=== PATIENT | female | born 1950 | race African-American/Black ===

== ENCOUNTER 2020-06-28 14:45 | Emergency (ER) | payer MEDICARE ==
[2020-06-28] MEDS ORDERED: Ketorolac Tromethamine 30 MG/ML VIAL ONE (15:41)
--- NOTE | 2020-06-28 15:56 | RAD ---
EXAM: 4 views of the left knee HISTORY: Severe left knee pain COMPARISON: None FINDINGS: A large knee effusion is seen. There is no evidence of acute fracture or dislocation. Moder ate tricompartmental degenerative changes are seen. Irregularity along the posterior aspect of the patella could represent degenerative change but osseous erosions are also a possibility. Mild diffuse soft tissue swelling is present. IMPRESSION: 1. Large knee effusion 2. Moderate left knee osteoarthritis with questionable osseous erosions along the posterior aspect of the patella
== END 2020-06-28 17:20 | disposition home or self-care (01) ==
LOC: ERS 14:45
DX: M25.462 Effusion, left knee (principal); I10 Essential (primary) hypertension; D64.9 Anemia, unspecified; M06.9 Rheumatoid arthritis, unspecified; M10.9 Gout, unspecified; F17.220 Nicotine dependence, chewing tobacco, uncomplicated; Z79.899 Other long term (current) drug therapy
CPT/HCPCS: 96372; J1885

== ENCOUNTER 2020-07-22 22:00 | Inpatient (IN) | payer MEDICARE ==
[2020-07-22] MEDS ORDERED: Diltiazem 125 MG/25 ML ONE ×2 (22:54→22:57)
[2020-07-22 23:22] LABS: Hemoglobin 9.7 g/dL (12.0-16.0); Mean Corpuscular HGB CONC 32.5 g/dL (32.0-36.0); Mean Corpuscular Hemoglobin 25.8 pg (27.0-31.0); Mean Corpuscular Volume 79.4 fL (78.0-98.0); Mean Platelet Volume 10.3 fL (7.4-10.4); Platelet Count 137 thou/uL (130-400); Red Blood Cell (RBC) Count 3.78 mill/uL (4.20-5.40); White Blood Cell (WBC) Count 10.3 thou/uL (4.8-10.8)
[2020-07-22 23:29] LABS: INR-International Normal Ratio 1.1; PTT 38.8 sec (22.9-36.1); Prothrombin Time 14.7 sec (12.0-14.7)
[2020-07-22 23:38] LABS: Band 2 % (5-11); Hypochromia SLIGHT = 6-15 cells (100X) (0-5/hpf); Lymphocytes 17 % (21-51); MDiff Complete? YES; Monocytes 11 % (0-10); Neutrophil 68 % (42-75); Reactive Lymphocytes 2 % (0-10)
[2020-07-22 23:44] LABS: ALT (SGPT) 17 U/L (8-55); AST (SGOT) 17 U/L (5-34); Albumin 3.4 g/dL (3.4-4.8); Alkaline Phosphatase 70 U/L (40-110); Anion Gap 15 mmol/L (10-20); BUN (Urea Nitrogen) 18 mg/dL (9.8-20.1); Bilirubin, Total 0.4 mg/dL (0.2-1.2); Calc. Creatinine Clearance 0 mL/min (70-130); Calcium 8.7 mg/dL (7.8-10.44); Carbon Dioxide 22 mmol/L (23-31); Chloride 101 mmol/L (98-107); Globulin 3.4 g/dL (2.4-3.5); Glucose 153 mg/dL (83-110); Potassium 3.3 mmol/L (3.5-5.1); Protein, Total 6.8 g/dL (5.8-8.1); Sodium 135 mmol/L (136-145)
[2020-07-23 00:06] LABS: CKMB 0.5 ng/mL (0-6.6)
[2020-07-23 00:07] LABS: Bacteria/HPF 3+ HPF (None Seen); Bilirubin Negative (Negative); Blood, Urine 1+ (Negative); Clarity Clear (Clear); Glucose, Urine (Dipstick) Normal (Negative); Ketone, Urine Negative (Negative); Leukocyte 500 Leu/uL (Negative); Nitrite Negative (Negative); Protein, Urine (Dipstick) Negative (Neg-Trace); Specific Gravity, Urine 1.006 (1.002-1.036); Squamous Epithelial 0-3 HPF (0-3); Urobilinogen Normal mg/dL (Less than 2); WBC/HPF Greater than 50 HPF (0-3)
[2020-07-23] MEDS ORDERED: Morphine 4 MG/ML VIAL ONE (00:51)
[2020-07-23] MEDS ORDERED: cefTRIAXone\\ROCEPHIN 1 GM VIAL ONE (00:52)
[2020-07-23] MEDS ORDERED: Ondansetron PF 4 MG/2 ML Vial ONE (00:53)
[2020-07-23] MEDS ORDERED: Ondansetron ODT 4 MG TAB ONE (01:03)
[2020-07-23] MEDS ORDERED: Apixaban 5 MG TAB PO SCH ×2 (02:00→21:00)
[2020-07-23 02:39] LABS: Troponin I 0.057 ng/mL (< 0.028)
[2020-07-23 05:03] VITALS: BMI 29.6
[2020-07-23] MEDS ORDERED: Ondansetron PF 4 MG/2 ML Vial IVP PRN (05:15)
[2020-07-23] MEDS ORDERED: Potassium Chloride 20 MEQ TAB PO SCH (05:30)
[2020-07-23] MEDS ORDERED: Magnesium Oxide 400 MG TAB PO SCH (05:30)
[2020-07-23 05:42] LABS: Troponin I 0.052 ng/mL (< 0.028)
[2020-07-23] MEDS: Acetaminophen 325 MG TAB PO PRN ×3 (06:43→16:34)
[2020-07-23] MEDS: Metoprolol Tartrate 25 MG TAB PO SCH ×2 (09:27→21:54)
[2020-07-23] MEDS ORDERED: Iopamidol-370 76% 500 ML 1 ML ONE (10:59)
[2020-07-23] MEDS ORDERED: Colchicine 0.6 MG TAB PO SCH (16:45)
[2020-07-23] MEDS ORDERED: Ketorolac Tromethamine 30 MG/ML VIAL IVP SCH (18:00)
[2020-07-23] MEDS: Ketorolac Tromethamine 30 MG/ML VIAL IVP SCH ×2 (19:01→23:44)
[2020-07-23] MEDS: Colchicine 0.6 MG TAB PO SCH (21:54)
[2020-07-23] MEDS: cefTRIAXone\\ROCEPHIN 1 GM in Sodium Chloride 0.9% 100 ML IVPB SCH (23:48)
[2020-07-24 03:54] LABS: Bacteria/HPF None Seen HPF (None Seen); Bilirubin Negative (Negative); Blood, Urine 2+ (Negative); Clarity Clear (Clear); Glucose, Urine (Dipstick) Normal (Negative); Ketone, Urine Negative (Negative); Leukocyte 500 Leu/uL (Negative); Nitrite Negative (Negative); Protein, Urine (Dipstick) Negative (Neg-Trace); Squamous Epithelial 0-3 HPF (0-3); Urobilinogen Normal mg/dL (Less than 2); pH, Urine 5.5 (5.0-9.0)
[2020-07-24 05:41] LABS: #Eosinphils 0.1 thou/uL (0.0-0.7); #Lymphocytes 1.2 thou/uL (1.20-3.40); #Monocytes 0.7 thou/uL (0.11-0.59); #Neutrophils 4.9 thou/uL (1.40-6.50); %Basophils 0.6 % (0.0-1.0); %Eosinophils 2.1 % (0.0-10.0); %Lymphocytes 17.4 % (21.0-51.0); %Monocytes 9.8 % (0.0-10.0); %Neutrophils 70.2 % (42.0-75.0); Hemoglobin 9.2 g/dL (12.0-16.0); Mean Corpuscular HGB CONC 31.8 g/dL (32.0-36.0); Mean Corpuscular Hemoglobin 25.8 pg (27.0-31.0); Mean Corpuscular Volume 81.1 fL (78.0-98.0); Mean Platelet Volume 10.1 fL (7.4-10.4); Platelet Count 154 thou/uL (130-400); Red Blood Cell (RBC) Count 3.56 mill/uL (4.20-5.40)
[2020-07-24 05:54] LABS: Anion Gap 16 mmol/L (10-20); BUN (Urea Nitrogen) 21 mg/dL (9.8-20.1); Calc. Creatinine Clearance 66 mL/min (70-130); Carbon Dioxide 23 mmol/L (23-31); Chloride 103 mmol/L (98-107); Glucose 74 mg/dL (83-110); Magnesium 1.7 mg/dL (1.6-2.6); Potassium 3.9 mmol/L (3.5-5.1); Sodium 138 mmol/L (136-145)
[2020-07-24] MEDS: Ketorolac Tromethamine 30 MG/ML VIAL IVP SCH ×3 (06:20→19:22)
[2020-07-24] MEDS: Lisinopril/Hydrochlorothiazide 20/25 mg Tablet PO SCH (08:54)
[2020-07-24] MEDS: Colchicine 0.6 MG TAB PO SCH ×2 (08:55→19:42)
[2020-07-24] MEDS: Metoprolol Tartrate 25 MG TAB PO SCH ×2 (08:55→19:42)
[2020-07-24] MEDS ORDERED: Famotidine 20 MG TAB PO SCH (13:30)
[2020-07-24] MEDS: Famotidine 20 MG TAB PO SCH (19:42)
[2020-07-25] MEDS: Ketorolac Tromethamine 30 MG/ML VIAL IVP SCH ×2 (00:07→05:45)
[2020-07-25] MEDS: cefTRIAXone\\ROCEPHIN 1 GM in Sodium Chloride 0.9% 100 ML IVPB SCH (00:09)
[2020-07-25 04:51] LABS: Hemoglobin 9.3 g/dL (12.0-16.0); Platelet Count 168 thou/uL (130-400)
[2020-07-25 08:02] VITALS: BP 127/71; TEMP 98.7
[2020-07-25] MEDS: Metoprolol Tartrate 25 MG TAB PO SCH (09:47)
[2020-07-25] MEDS: Lisinopril/Hydrochlorothiazide 20/25 mg Tablet PO SCH (09:47)
[2020-07-25] MEDS: Famotidine 20 MG TAB PO SCH (09:48)
[2020-07-25] MEDS: Colchicine 0.6 MG TAB PO SCH (09:48)
== END 2020-07-25 11:59 | disposition home or self-care (01) | DRG 689 ==
LOC: ERS 22:00 → 2SW 07-23 01:02
PROVIDERS: ADMIT Internal Medicine; ATTEND Family Medicine
DX: N10 Acute pyelonephritis (principal); I21.A1 Myocardial infarction type 2; I48.0 Paroxysmal atrial fibrillation; I10 Essential (primary) hypertension; M10.9 Gout, unspecified; D50.9 Iron deficiency anemia, unspecified; M19.90 Unspecified osteoarthritis, unspecified site; E87.6 Hypokalemia; Z98.890 Other specified postprocedural states; Z90.49 Acquired absence of other specified parts of digestive tract; Z98.51 Tubal ligation status; Z79.899 Other long term (current) drug therapy; Z83.3 Family history of diabetes mellitus
CPT/HCPCS: 36415; 71045; 71275; 80048; 80053; 81001; 81003; 81015; 82274; 82553; 83605; 83735; 84443; 84484; 84550; 85014; 85018; 85025; 85049; 85379; 85610; 85730; 87040; 87086; 93005; 93010; 93306; 96365; 96366; 96367; 96375; J0696; J1885; J2270; J2405; J3490; Q0162; Q9967

== ENCOUNTER 2020-08-19 15:24 | Inpatient (IN) | payer MEDICARE ==
[2020-08-19 16:15] LABS: #Eosinphils 0.1 thou/uL (0.0-0.7); #Lymphocytes 1.8 thou/uL (1.20-3.40); #Monocytes 0.4 thou/uL (0.11-0.59); %Basophils 0.6 % (0.0-1.0); %Eosinophils 1.6 % (0.0-10.0); %Lymphocytes 33.2 % (21.0-51.0); %Monocytes 8.4 % (0.0-10.0); %Neutrophils 56.3 % (42.0-75.0); Hemoglobin 11.4 g/dL (12.0-16.0); Mean Corpuscular HGB CONC 32.7 g/dL (32.0-36.0); Mean Corpuscular Hemoglobin 25.9 pg (27.0-31.0); Mean Corpuscular Volume 79.3 fL (78.0-98.0); Mean Platelet Volume 10.6 fL (7.4-10.4); Platelet Count 145 thou/uL (130-400); RBC Distribution Width 13.3 % (11.5-14.5); Red Blood Cell (RBC) Count 4.38 mill/uL (4.20-5.40); White Blood Cell (WBC) Count 5.3 thou/uL (4.8-10.8)
[2020-08-19 16:40] LABS: ALT (SGPT) 25 U/L (8-55); AST (SGOT) 19 U/L (5-34); Albumin 4.1 g/dL (3.4-4.8); Alkaline Phosphatase 93 U/L (40-110); Anion Gap 16 mmol/L (10-20); BUN (Urea Nitrogen) 16 mg/dL (9.8-20.1); Bilirubin, Total 0.3 mg/dL (0.2-1.2); CK (CPK) 74 U/L (29-168); Calc. Creatinine Clearance 0 mL/min (70-130); Calcium 9.6 mg/dL (7.8-10.44); Carbon Dioxide 25 mmol/L (23-31); Chloride 104 mmol/L (98-107); Glucose 109 mg/dL (83-110); Magnesium 1.4 mg/dL (1.6-2.6); Potassium 3.1 mmol/L (3.5-5.1); Protein, Total 7.1 g/dL (5.8-8.1); Sodium 142 mmol/L (136-145)
[2020-08-19 16:57] LABS: Bacteria/HPF None Seen HPF (None Seen); Bilirubin Negative (Negative); Blood, Urine Trace (Negative); Clarity Clear (Clear); Glucose, Urine (Dipstick) Normal (Negative); Ketone, Urine Negative (Negative); Leukocyte 250 Leu/uL (Negative); Nitrite Negative (Negative); Protein, Urine (Dipstick) Negative (Neg-Trace); Specific Gravity, Urine 1.004 (1.002-1.036); Squamous Epithelial 0-3 HPF (0-3); Urobilinogen Normal mg/dL (Less than 2)
[2020-08-19 16:59] LABS: RBC/HPF 0-3 HPF (0-3)
[2020-08-19] MEDS ORDERED: Magnesium 2 GM/50 ML BAG (IN WATER) ONE (18:41)
[2020-08-19 19:24] LABS: Lactic Acid 2.3 mmol/L (0.5-2.2)
[2020-08-19 19:26] LABS: Troponin I Less than 0.010 ng/mL (< 0.028)
[2020-08-19 19:52] VITALS: BMI 30.6
[2020-08-19] MEDS: Colchicine 0.6 MG TAB PO SCH (20:18)
[2020-08-19] MEDS: Sodium Chloride 0.9% 1,000 ML IV SCH (20:19)
[2020-08-19] MEDS: Potassium Chloride 20 MEQ in Premix Bag 1 BAG IVPB SCH ×2 (20:19→22:38)
[2020-08-19] MEDS ORDERED: Metoprolol Tartrate 25 MG TAB PO SCH (21:00)
[2020-08-19 22:46] LABS: Troponin I 0.021 ng/mL (< 0.028)
[2020-08-20] MEDS ORDERED: Atropine Sulfate 1 mg/10 ml Syringe IVP PRN (04:04)
[2020-08-20 05:28] LABS: Anion Gap 14 mmol/L (10-20); BUN (Urea Nitrogen) 15 mg/dL (9.8-20.1); Calc. Creatinine Clearance 58 mL/min (70-130); Carbon Dioxide 22 mmol/L (23-31); Chloride 108 mmol/L (98-107); Glucose 85 mg/dL (83-110); Potassium 4.1 mmol/L (3.5-5.1); Sodium 140 mmol/L (136-145)
[2020-08-20 08:00] LABS: #Eosinphils 0.2 thou/uL (0.0-0.7); #Lymphocytes 1.5 thou/uL (1.20-3.40); #Monocytes 0.4 thou/uL (0.11-0.59); #Neutrophils 2.8 thou/uL (1.40-6.50); %Basophils 0.8 % (0.0-1.0); %Eosinophils 3.7 % (0.0-10.0); %Lymphocytes 29.6 % (21.0-51.0); %Monocytes 8.9 % (0.0-10.0); %Neutrophils 57.1 % (42.0-75.0); Hemoglobin 10.6 g/dL (12.0-16.0); Mean Corpuscular HGB CONC 31.5 g/dL (32.0-36.0); Mean Corpuscular Hemoglobin 25.2 pg (27.0-31.0); Mean Platelet Volume 10.2 fL (7.4-10.4); Platelet Count 133 thou/uL (130-400); RBC Distribution Width 13.1 % (11.5-14.5); Red Blood Cell (RBC) Count 4.21 mill/uL (4.20-5.40)
[2020-08-20] MEDS: Colchicine 0.6 MG TAB PO SCH ×2 (08:32→21:07)
[2020-08-20] MEDS: Pantoprazole 40 MG GRANULES PACKET PO SCH (08:32)
[2020-08-20 08:58] LABS: SARS-CoV-2 PCR by NAA Not Detected (NotDetected)
[2020-08-20] MEDS ORDERED: Enoxaparin Sodium 40 MG/0.4 ML SYRINGE SC SCH (09:00)
[2020-08-20] MEDS ORDERED: Magnesium 2 GM/50 ML 2 GM in Premix Bag 1 BAG IVPB SCH (09:15)
[2020-08-20] MEDS ORDERED: Lisinopril 10 MG TAB PO SCH (11:30)
[2020-08-20] MEDS: Sodium Chloride 0.9% 1,000 ML IV SCH (21:07)
[2020-08-21] MEDS: Lisinopril 20 MG TAB PO SCH (08:14)
[2020-08-21] MEDS: Pantoprazole 40 MG GRANULES PACKET PO SCH (08:14)
[2020-08-21] MEDS: Colchicine 0.6 MG TAB PO SCH ×2 (08:14→21:14)
[2020-08-21] MEDS ORDERED: Iopamidol 370 76% 50 ML VIAL FS ONE (10:43)
[2020-08-21] MEDS ORDERED: Gentamicin 80 MG/2 ML VIAL ONE (11:39)
[2020-08-21] MEDS ORDERED: CEFAZOLIN 1 GM VIAL ONE (11:39)
[2020-08-21] MEDS ORDERED: Lidocaine 1% (PF) 30 ML VIAL ONE (11:40)
[2020-08-21] MEDS ORDERED: Midazolam HCl 2 mg/2 ml Vial ONE (13:01)
[2020-08-21] MEDS ORDERED: Fentanyl 100 MCG/2 ML VIAL ONE (13:01)
[2020-08-21] MEDS ORDERED: Amiodarone 200 MG TAB PO SCH ×2 (15:15→21:00)
[2020-08-21] MEDS ORDERED: hydrALAZINE 20 MG/ML VIAL SLOW IVP PRN (15:20)
[2020-08-21] MEDS ORDERED: Labetalol HCl 100 MG/20 ML VIAL SLOW IVP PRN (15:20)
[2020-08-21] MEDS ORDERED: Acetaminophen 325 MG TAB PO PRN (16:43)
[2020-08-21] MEDS ORDERED: Amiodarone 150 MG in Dextrose 5% in Water 100 ML IVPB SCH (18:00)
[2020-08-21] MEDS: Amiodarone 450 MG in Dextrose 5% in Water 250 ML IVPB SCH (19:33)
[2020-08-21] MEDS: Cephalexin 250 MG CAP PO SCH (21:14)
[2020-08-21] MEDS: Metoprolol Tartrate 25 MG TAB PO SCH (21:14)
[2020-08-22] MEDS: Amiodarone 450 MG in Dextrose 5% in Water 250 ML IVPB SCH (02:29)
[2020-08-22] MEDS: Lisinopril 20 MG TAB PO SCH (09:30)
[2020-08-22] MEDS: Cephalexin 250 MG CAP PO SCH ×2 (09:30→14:33)
[2020-08-22] MEDS: Pantoprazole 40 MG GRANULES PACKET PO SCH (09:30)
[2020-08-22] MEDS: Metoprolol Tartrate 25 MG TAB PO SCH (09:30)
[2020-08-22] MEDS: Colchicine 0.6 MG TAB PO SCH (09:30)
[2020-08-22] MEDS ORDERED: Amiodarone 200 MG TAB PO SCH ×2 (14:15→21:00)
[2020-08-22 15:52] VITALS: BP 139/100; TEMP 98.5
== END 2020-08-22 18:45 | disposition home or self-care (01) | DRG 244 ==
LOC: ERS 15:24 → 2NO 17:52
PROVIDERS: ADMIT Internal Medicine; ATTEND Internal Medicine
PROC: 0JH606Z Insertion of Pacemaker, Dual Chamber into Chest Subcutaneous Tissue and Fascia, Open Approach (ICD-10-PCS; principal; 2020-08-21)
PROC: 02H63JZ Insertion of Pacemaker Lead into Right Atrium, Percutaneous Approach (ICD-10-PCS; 2020-08-21)
PROC: 02HK3JZ Insertion of Pacemaker Lead into Right Ventricle, Percutaneous Approach (ICD-10-PCS; 2020-08-21)
DX: I49.5 Sick sinus syndrome (principal); I48.91 Unspecified atrial fibrillation; M10.9 Gout, unspecified; I10 Essential (primary) hypertension; E87.6 Hypokalemia; M19.90 Unspecified osteoarthritis, unspecified site; Z20.822 Contact with and (suspected) exposure to COVID-19; I44.0 Atrioventricular block, first degree; E83.42 Hypomagnesemia; Z90.49 Acquired absence of other specified parts of digestive tract
CPT/HCPCS: 33208; 36415; 71045; 75820; 80048; 80053; 81003; 81015; 82550; 83605; 83735; 83880; 84443; 84484; 85025; 87635; 93005; 93010; 96365; 96375; 99152; 99153; C1785; C1898; J0282; J0690; J1580; J1650; J2001; J2250; J3010; J3475; J3480; J7070; Q9967; U0003; U0005

== ENCOUNTER → 2023-11-18 | Day surgery (SDC) | payer MEDICARE ==
[2023-11-17 10:39] VITALS: BMI 30.6
[~2023-11-18] MED LIST: Acetaminophen 325 MG TAB ONE; Heparin 10,000 UNITS/ 10 ML VIAL ONE; Iopamidol 370 76% 100 ML VIAL ONE; Midazolam HCl 2 mg/2 ml Vial ONE; Nitroglycerin 50 MG/250 ML BOT 0 ML ONE; Protamine Sulfate 50 MG/5 ML VIAL ONE; fentaNYL 50 mcg/mL 1 mL Vial ONE; hydrALAZINE 20 MG/ML VIAL ONE
[2023-11-18 07:39] LABS: #Basophils Less than 0.03 10x3/uL (0.0-0.2); %Basophils 0.2 % (0.0-1.0); %Eosinophils 2.1 % (0.0-10.0); %Monocytes 9.2 % (0.0-10.0); %Neutrophils 60.3 % (42.0-75.0); Hematocrit 37.4 % (36.0-47.0); Hemoglobin 11.6 g/dL (12.0-16.0); Mean Corpuscular Hemoglobin 24.7 pg (27.0-31.0); Mean Corpuscular Volume 79.7 fL (78.0-98.0); Platelet Count 131 10x3/uL (130-400); RBC Distribution Width 15.9 % (11.5-14.5); Red Blood Cell (RBC) Count 4.69 mill/uL (4.20-5.40)
[2023-11-18 09:37] LABS: ALT (SGPT) 18 U/L (8-55); AST (SGOT) 22 U/L (5-34); Albumin 3.8 g/dL (3.4-4.8); Alkaline Phosphatase 66 U/L (40-110); Anion Gap 14 mmol/L (10-20); BUN (Urea Nitrogen) 14 mg/dL (9.8-20.1); Bilirubin, Total 0.4 mg/dL (0.2-1.2); Calc. Creatinine Clearance 56 mL/min (70-130); Calcium 9.6 mg/dL (7.8-10.44); Carbon Dioxide 25 mmol/L (23-31); Chloride 106 mmol/L (98-107); Estimated GFR 56; Glucose 89 mg/dL (83-110); Potassium 3.8 mmol/L (3.5-5.1); Protein, Total 6.8 g/dL (5.8-8.1); Sodium 141 mmol/L (136-145)
== END ==
LOC: SDC 06:47
PROVIDERS: ATTEND Internal Medicine Cardiovascular Disease
PROC: 4A023N7 Measurement of Cardiac Sampling and Pressure, Left Heart, Percutaneous Approach (ICD-10-PCS; principal; 2023-11-18)
PROC: B215YZZ Fluoroscopy of Left Heart using Other Contrast (ICD-10-PCS; 2023-11-18)
DX: I47.29 Other ventricular tachycardia (principal); I47.19 Other supraventricular tachycardia; R94.39 Abnormal result of other cardiovascular function study; I49.5 Sick sinus syndrome; E87.6 Hypokalemia; N17.9 Acute kidney failure, unspecified; E78.00 Pure hypercholesterolemia, unspecified; D50.9 Iron deficiency anemia, unspecified; M10.9 Gout, unspecified; M19.90 Unspecified osteoarthritis, unspecified site; Z79.899 Other long term (current) drug therapy; F17.220 Nicotine dependence, chewing tobacco, uncomplicated; Z95.1 Presence of aortocoronary bypass graft
CPT/HCPCS: 80053; 85025; 85347; 93458; C1769; J0360; J1644; J2250; J2720; J3010; Q9967; 99152